=== PATIENT | female | born 1950 | race Hispanic/Latino ===

== ENCOUNTER 2016-08-25 20:03 | Emergency (ER) | payer OTHER ==
[~2016-08-25] VITALS: Ht 162.6 cm; Wt 59.0 kg
[2016-08-25] MEDS ORDERED: OXYMETAZOLINE NASAL SPRAY (AFRIN) ONE (21:00)
[2016-08-25] MEDS ORDERED: MUPIROCIN 2% OINT 22 GM TUBE TOP ONE (21:45)
[2016-08-25 22:02] VITALS: BP 149/77
[2016-08-25] MEDS ORDERED: AUGMENTIN 875 MG TAB PO ONE (22:15)
[2016-08-25] MEDS ORDERED: NORCO 5/325MG TABLET (BULK FOR ED) PO ONE (22:15)
[2016-08-26] MEDS ORDERED: KEFL500C7 PO (07:31)
== END 2016-08-25 22:41 | disposition home or self-care (01) ==
LOC: M ED 21:01 → EDBD 21:01 → M ED 22:41
DX: R04.0 Epistaxis (principal)

== ENCOUNTER 2016-08-26 07:00 | Emergency (ER) | payer OTHER ==
[~2016-08-26] VITALS: Ht 160 cm; Wt 59.0 kg
[2016-08-26 07:06] VITALS: BP 132/68
[2016-08-26] MEDS ORDERED: KEFL500C7 PO (07:31)
== END 2016-08-26 07:54 | disposition home or self-care (01) ==
LOC: M ED 07:47
DX: Z48.00 Encounter for change or removal of nonsurgical wound dressing (principal); R04.0 Epistaxis; J06.9 Acute upper respiratory infection, unspecified